=== PATIENT | female | born 1955 | race African-American/Black ===

== ENCOUNTER 2021-07-22 06:00 | Emergency (ER) | payer OTHER ==
[~2021-07-22] VITALS: Ht 162.6 cm; Wt 63.5 kg
--- NOTE | 2021-07-22 06:08 | NUR ---
PT BIBRA C/O HAVING SHORTNESS OF BREATH X FEW HOURS. PT HAS HX OF COPD AND ASTHMA SATTING AT 97% ON ROOM AIR. PATIENT USED INHALER AND HAD SOME RELIEF. ALERT AND OREINTED X3. AMBULATORY AND PLACED ON A MONITOR.
[2021-07-22] MEDS ORDERED: methylPREDNISolone SOD SUCC 125 MG/2ML VIAL ONE (06:15)
[2021-07-22] MEDS ORDERED: IPRATROPIUM NEB FS 0.5 MG/2.5 ML AMPUL.NEB ONE (06:23)
[2021-07-22] MEDS ORDERED: ALBUTEROL FS 2.5 MG/3 ML VIAL.NEB ONE (06:23)
[2021-07-22] MEDS ORDERED: methylPREDNISolone SOD SUCC 125 MG/2ML VIAL IV ONE (06:30)
[2021-07-22] MEDS ORDERED: IPRATROPIUM NEB FS 0.5 MG/2.5 ML AMPUL.NEB NEB ONE (06:30)
[2021-07-22] MEDS ORDERED: ALBUTEROL FS 2.5 MG/3 ML VIAL.NEB NEB ONE (06:30)
[2021-07-22] MEDS ORDERED: PRED5TAB48 PO (06:50)
--- NOTE | 2021-07-22 07:15 | NUR ---
Patient discharged to home in stable condition. Written and verbal after care instructions given. Patient verbalizes understanding of instruction.
[2021-07-22 08:00] VITALS: BP 131/75
--- NOTE | 2021-07-22 08:00 | NUR ---
IV removed. Catheter intact and site benign. Pressure and 4x4 applied to site. No bleeding noted.Patient discharged to home in stable condition. Written and verbal after care instructions given. Patient verbalizes understanding of instruction.
== END 2021-07-22 08:05 | disposition home or self-care (01) ==
LOC: ER 06:05
DX: J44.1 Chronic obstructive pulmonary disease with (acute) exacerbation (principal); I10 Essential (primary) hypertension; Z79.899 Other long term (current) drug therapy
CPT/HCPCS: 94640; 96374; 99285; J2930

== ENCOUNTER 2022-09-06 15:18 | Emergency (ER) | payer OTHER ==
[~2022-09-06] VITALS: Ht 170.2 cm; Wt 70.3 kg
[~2022-09-06 15:18] MED LIST: PRED5TAB48 PO
--- NOTE | 2022-09-06 15:20 | NUR ---
RECEIVED PT 66 YRS FEMALE WITH ELEVATED TEMP WITH MILD SOB
--- NOTE | 2022-09-06 15:30 | NUR ---
INSERTED ANGO CATHTER G 20 ON LT WIST BLOOD DROW AND SENT TO LAB
--- NOTE | 2022-09-06 15:45 | NUR ---
RT CALLED FOR BREATHING TREATMENT
[2022-09-06] MEDS ORDERED: methylPREDNISolone SOD SUCC 125 MG/2ML VIAL ONE (15:51)
[2022-09-06] MEDS ORDERED: ALBUTEROL FS 2.5 MG/3 ML VIAL.NEB ONE (15:56)
[2022-09-06] MEDS ORDERED: IPRATROPIUM NEB FS 0.5 MG/2.5 ML AMPUL.NEB ONE (15:56)
[2022-09-06] MEDS ORDERED: IPRATROPIUM NEB FS 0.5 MG/2.5 ML AMPUL.NEB NEB ONE (16:00)
[2022-09-06] MEDS ORDERED: ALBUTEROL FS 2.5 MG/3 ML VIAL.NEB NEB ONE (16:00)
[2022-09-06] MEDS ORDERED: methylPREDNISolone SOD SUCC 125 MG/2ML VIAL IV ONE (16:00)
--- NOTE | 2022-09-06 16:00 | NUR ---
CALEB ALONZO SENT TO LAB
[2022-09-06 16:14] LABS: BASOPHILS # (AUTO) 0.1 K/uL (0.0-0.2); BASOPHILS % (AUTO) 0.6 % (0.0-2.0); HEMATOCRIT 34 % (33-45); HEMOGLOBIN 11.1 g/dL (11.5-14.8); LYMPHOCYTES # (AUTO) 0.7 K/uL (0.8-4.8); MEAN CORPUSCULAR HGB CONC 32 g/dl (31.0-36.0); MEAN CORPUSCULAR VOLUME 87 fL (82-100); NEUTROPHILS # (AUTO) 14.7 K/uL (1.8-8.9); NEUTROPHILS % (AUTO) 87.4 % (43.0-81.0); PLATELET COUNT (AUTO) 244 K/uL (150-450); RED BLOOD CELL COUNT(AUTO) 3.96 MIL/uL (4.0-5.2); WHITE BLOOD COUNT (AUTO) 16.9 K/uL (4.3-11.0)
[2022-09-06] MEDS ORDERED: ACETAMINOPHEN ES 500 MG TABLET PO ONE (16:30)
[2022-09-06] MEDS ORDERED: ACETAMINOPHEN ES 500 MG TABLET ONE (16:41)
[2022-09-06 16:44] LABS: ALANINE AMINOTRANSFERASE 17 U/L (12-78); ALBUMIN 3.2 g/dL (3.4-5.0); ALKALINE PHOSPHATASE 62 U/L (46-116); ASPARTATE AMINOTRANSFERASE 19 U/L (15-37); BILIRUBIN,DIRECT 0.2 mg/dL (0.0-0.2); BILIRUBIN,TOTAL 0.4 mg/dL (0.2-1.0); CALCIUM, SERUM 8.5 mg/dL (8.5-10.1); CARBON DIOXIDE 25 mmol/L (21-32); CHLORIDE 101 mmol/L (98-107); CREATININE 1.2 mg/dL (0.6-1.3); GLUCOSE 116 mg/dL (74-106); POTASSIUM 3.9 mmol/L (3.5-5.1); SODIUM SERUM 135 mmol/L (136-145); UREA NITROGEN, BLOOD 13 mg/dL (7-18)
[2022-09-06] MEDS ORDERED: CEFTRIAXONE 1GM BAG (ER ONLY) 50 ML IV ONE (17:30)
[2022-09-06] MEDS ORDERED: AZITHROMYCIN 500 MG in IV D5W 250 ML IV ONE (17:30)
[2022-09-06] MEDS ORDERED: IV NS 0.9% 1,000 ML BAG IV ONE (18:00)
--- NOTE | 2022-09-06 18:04 | NUR ---
CALLED [facility] AND SPOKE WITH PAULA. OPENED A CASE AND LEXII VALDEZ WILL CALL BACK
--- NOTE | 2022-09-06 18:30 | NUR ---
C/O CHEST TIGHTENESS AND BACK PAIN DR. PRUETT NOTEFED AND AWARE
--- NOTE | 2022-09-06 19:27 | NUR ---
HAND OFF JULISSA RN
--- NOTE | 2022-09-06 21:54 | NUR ---
Pt accepted to [facility] by Dr Rivera. Room 4121. # for report [phone]. [facility] eta [id number].
--- NOTE | 2022-09-06 22:02 | NUR ---
NOTED TO CALL BACK FOR REPORT IN 15 MIN
--- NOTE | 2022-09-06 22:46 | NUR ---
REPORT GIVEN TO NURSE WALLACE
--- NOTE | 2022-09-06 23:49 | NUR ---
REPORT GIVEN TO TRANSPORT AT BEDSIDE
[2022-09-07 00:16] VITALS: BP 111/77
== END 2022-09-07 00:17 | disposition short-term general hospital (02) ==
LOC: ER 15:23
DX: J44.0 Chronic obstructive pulmonary disease with (acute) lower respiratory infection (principal); J18.9 Pneumonia, unspecified organism; J44.1 Chronic obstructive pulmonary disease with (acute) exacerbation; Z20.822 Contact with and (suspected) exposure to COVID-19; F17.200 Nicotine dependence, unspecified, uncomplicated; I10 Essential (primary) hypertension
CPT/HCPCS: 99285; 96365; 71045; 96375; 87426; 99406; 96368; 93005; 87804; 85025; 80048; 87040 ×2; 83605; 80076; 36415; 84484; 83880; 94640; J2930; J7030; J0456; J0696; C9803; J7060

== ENCOUNTER 2023-09-09 00:50 | Emergency (ER) | payer OTHER ==
[~2023-09-09] VITALS: Ht 162.6 cm; Wt 68.0 kg
[2023-09-09] MEDS ORDERED: methylPREDNISolone SOD SUCC 125 MG/2ML VIAL ONE (01:29)
[2023-09-09] MEDS ORDERED: methylPREDNISolone SOD SUCC 125 MG/2ML VIAL IV ONE (01:30)
[2023-09-09] MEDS ORDERED: ALBUTEROL FS 2.5 MG/3 ML VIAL.NEB NEB ONE (01:30)
[2023-09-09 01:42] VITALS: O2SAT 94
[2023-09-09] MEDS ORDERED: ALBUTEROL FS 2.5 MG/3 ML VIAL.NEB ONE ×2 (01:44→01:46)
[2023-09-09 01:59] VITALS: O2SAT 100
[2023-09-09] MEDS ORDERED: ALBUTEROL FS 2.5 MG/0.5 ML VIAL.NEB NEB ONE (02:00)
[2023-09-09 02:09] LABS: BASOPHILS % (AUTO) 0.4 % (0.0-2.0); EOSINOPHILS % (AUTO) 0.1 % (0.0-6.0); HEMATOCRIT 37 % (33-45); HEMOGLOBIN 11.9 g/dL (11.5-14.8); LYMPHOCYTES # (AUTO) 0.8 K/uL (0.8-4.8); LYMPHOCYTES % (AUTO) 8.2 % (20.0-44.0); MEAN CORPUSCULAR HEMOGLOBIN 27 PG (26.0-33.0); MEAN CORPUSCULAR HGB CONC 32 g/dl (31.0-36.0); MEAN CORPUSCULAR VOLUME 84 fL (82-100); MONOCYTES # (AUTO) 0.5 K/uL (0.1-1.30); MONOCYTES % (AUTO) 5.4 % (2.0-12.0); NEUTROPHILS # (AUTO) 8.3 K/uL (1.8-8.9); NEUTROPHILS % (AUTO) 85.9 % (43.0-81.0); PLATELET COUNT (AUTO) 365 K/uL (150-450); RED BLOOD CELL COUNT(AUTO) 4.37 MIL/uL (4.0-5.2); RED CELL DISTRIBUTION WIDTH 14.3 % (11.5-15.0); WHITE BLOOD COUNT (AUTO) 9.7 K/uL (4.3-11.0)
[2023-09-09 02:10] LABS: INR 1.05 (0.91-1.10); PARTIAL THROMBOPLASTIN TIME 28.5 SEC (24.3-34.3); PROTHROMBIN TIME 11.1 SECS (9.2-11.1)
[2023-09-09 02:27] LABS: CALCIUM, SERUM 9.4 mg/dL (8.5-10.1); CARBON DIOXIDE 25 mmol/L (21-32); CHLORIDE 104 mmol/L (98-107); CREATININE 0.9 mg/dL (0.6-1.3); GLUCOSE 131 mg/dL (74-106); POTASSIUM 4.2 mmol/L (3.5-5.1); SODIUM SERUM 139 mmol/L (136-145); UREA NITROGEN, BLOOD 13 mg/dL (7-18)
[2023-09-09 02:39] LABS: ALANINE AMINOTRANSFERASE 18 U/L (12-78); ALBUMIN 3.5 g/dL (3.4-5.0); ALKALINE PHOSPHATASE 92 U/L (46-116); ASPARTATE AMINOTRANSFERASE 14 U/L (15-37); BILIRUBIN,DIRECT 0.1 mg/dL (0.0-0.2); BILIRUBIN,TOTAL 0.2 mg/dL (0.2-1.0); NT-PRO BNP 47 pg/mL (0-125); TOTAL PROTEIN, SERUM 8.2 g/dL (6.4-8.2)
[2023-09-09] MEDS ORDERED: PRED50TA PO (03:17)
[2023-09-09] MEDS ORDERED: AZIT250T13 PO (03:17)
[2023-09-09 05:45] VITALS: BP 130/90; TEMP 98.1; O2SAT 95
== END 2023-09-09 03:45 | disposition home or self-care (01) ==
LOC: ER 00:54
DX: J44.1 Chronic obstructive pulmonary disease with (acute) exacerbation (principal); J18.9 Pneumonia, unspecified organism; J98.01 Acute bronchospasm; I10 Essential (primary) hypertension; F17.200 Nicotine dependence, unspecified, uncomplicated; Z79.899 Other long term (current) drug therapy
CPT/HCPCS: 94640; 99285; 96374; 71045; 93005; 85025; 80048; 80076; 36415; 84484; 85730; 83880; J2930

== ENCOUNTER 2023-11-28 21:22 | Inpatient (IN) | payer OTHER ==
[~2023-11-28] VITALS: Ht 162.6 cm; Wt 67.1 kg
[~2023-11-28 21:22] MED LIST changes: +AZIT250T13 PO; +PRED50TA PO
[2023-11-28] MEDS ORDERED: methylPREDNISolone SOD SUCC 40 MG/ML VIAL ONE (22:12)
[2023-11-28] MEDS: methylPREDNISolone SOD SUCC 125 MG/2ML VIAL IV ONE (22:16)
[2023-11-28] MEDS: ALBUTEROL FS 2.5 MG/3 ML VIAL.NEB NEB STA (22:24)
[2023-11-28] MEDS: IPRATROPIUM NEB FS 0.5 MG/2.5 ML AMPUL.NEB NEB STA (22:24)
[2023-11-28] MEDS ORDERED: ALBUTEROL FS 2.5 MG/3 ML VIAL.NEB ONE ×2 (22:26→22:32)
[2023-11-28] MEDS ORDERED: IPRATROPIUM NEB FS 0.5 MG/2.5 ML AMPUL.NEB ONE (22:26)
[2023-11-28] MEDS: ALBUTEROL FS 2.5 MG/3 ML VIAL.NEB CONTNEB ONE (22:31)
[2023-11-28 22:35] LABS: BASOPHILS # (AUTO) 0.3 K/uL (0.0-0.2); BASOPHILS % (AUTO) 2.8 % (0.0-2.0); EOSINOPHILS # (AUTO) 0.9 K/uL (0.0-0.7); EOSINOPHILS % (AUTO) 9.4 % (0.0-6.0); HEMATOCRIT 38 % (33-45); HEMOGLOBIN 12.4 g/dL (11.5-14.8); LYMPHOCYTES # (AUTO) 1.7 K/uL (0.8-4.8); LYMPHOCYTES % (AUTO) 17.3 % (20.0-44.0); MEAN CORPUSCULAR HEMOGLOBIN 28 PG (26.0-33.0); MEAN CORPUSCULAR HGB CONC 33 g/dl (31.0-36.0); MEAN CORPUSCULAR VOLUME 87 fL (82-100); MONOCYTES # (AUTO) 0.6 K/uL (0.1-1.30); MONOCYTES % (AUTO) 6.2 % (2.0-12.0); NEUTROPHILS # (AUTO) 6.4 K/uL (1.8-8.9); NEUTROPHILS % (AUTO) 64.3 % (43.0-81.0); PLATELET COUNT (AUTO) 293 K/uL (150-450); RED BLOOD CELL COUNT(AUTO) 4.39 MIL/uL (4.0-5.2); RED CELL DISTRIBUTION WIDTH 14.4 % (11.5-15.0)
[2023-11-28] MEDS: Magnesium 1GM/D5W 100ML PREMIX 200 ML IV ONE (22:45)
[2023-11-28] MEDS ORDERED: Magnesium 1GM/D5W 100ML PREMIX 100 ML IV ONE ×2 (22:50→23:30)
[2023-11-28 23:01] LABS: CALCIUM, SERUM 9.3 mg/dL (8.5-10.1); CARBON DIOXIDE 28 mmol/L (21-32); CHLORIDE 103 mmol/L (98-107); GLUCOSE 125 mg/dL (74-106); POTASSIUM 3.6 mmol/L (3.5-5.1); SODIUM SERUM 141 mmol/L (136-145); UREA NITROGEN, BLOOD 9 mg/dL (7-18)
[2023-11-28 23:14] LABS: NT-PRO BNP 36 pg/mL (0-125)
[2023-11-29] VITALS (10 sets, daily range): BP systolic 106–122; BP diastolic 70–84; TEMP 98.2–98.8; O2SAT 94–99
[2023-11-29] MEDS ORDERED: IPRATROPIUM NEB FS 0.5 MG/2.5 ML AMPUL.NEB NEB PRN (01:00)
[2023-11-29] MEDS ORDERED: MAGNESIUM HYDROXIDE 30 ML UDC PO PRN (01:00)
[2023-11-29] MEDS ORDERED: ZOLPIDEM TARTRATE 5 MG TABLET PO PRN (01:00)
[2023-11-29] MEDS ORDERED: MAG HYDROX/AL HYDROX/SIMETH 30 ML UDC PO PRN (01:00)
[2023-11-29] MEDS ORDERED: Z GUARD REMEDY 4 OZ OINT TP PRN (01:00)
[2023-11-29] MEDS ORDERED: ONDANSETRON HCL/PF 4 MG/2 ML VIAL IVP PRN (01:00)
[2023-11-29] MEDS ORDERED: ACETAMINOPHEN 325 MG TABLET PO PRN (01:00)
[2023-11-29] MEDS ORDERED: ALBUTEROL FS 2.5 MG/3 ML VIAL.NEB NEB PRN (01:00)
[2023-11-29] MEDS: ALBUTEROL FS 2.5 MG/0.5 ML VIAL.NEB NEB SCH (01:30)
[2023-11-29] MEDS: IPRATROPIUM NEB FS 0.5 MG/2.5 ML AMPUL.NEB NEB SCH (01:30)
[2023-11-29 02:23] LABS: ABG BASE EXCESS -1.4 mmol/L; ABG OXYGEN SATURATION 97.3 % (92.0-98.5); ABG PH 7.371 (7.350-7.450); ABG TOTAL HEMOGLOBIN 12.7 G/dL (12.0-16.0); COHb 0.3 % (0.5-1.5); MetHb 0.4 % (0.0-1.5); O2Hb 96.6 % (94.0-97.0); SITE, ABG Right Radial; VENT MODE, BG ST 10 15/5 40%
[2023-11-29] MEDS ORDERED: CEFEPIME 1 GM VIAL ONE (03:48)
[2023-11-29] MEDS: CEFEPIME 1 GM in IV D5W 50 ML IV ONE (04:03)
[2023-11-29] MEDS: methylPREDNISolone SOD SUCC 40 MG/ML VIAL IV SCH (05:16)
[2023-11-29 06:58] LABS: BASOPHILS % (AUTO) 0.4 % (0.0-2.0); EOSINOPHILS % (AUTO) 0.1 % (0.0-6.0); HEMATOCRIT 35 % (33-45); HEMOGLOBIN 11.4 g/dL (11.5-14.8); LYMPHOCYTES # (AUTO) 0.4 K/uL (0.8-4.8); MEAN CORPUSCULAR HEMOGLOBIN 28 PG (26.0-33.0); MEAN CORPUSCULAR HGB CONC 33 g/dl (31.0-36.0); MEAN CORPUSCULAR VOLUME 86 fL (82-100); MONOCYTES # (AUTO) 0.1 K/uL (0.1-1.30); MONOCYTES % (AUTO) 1.1 % (2.0-12.0); NEUTROPHILS # (AUTO) 8.5 K/uL (1.8-8.9); NEUTROPHILS % (AUTO) 94.4 % (43.0-81.0); PLATELET COUNT (AUTO) 304 K/uL (150-450); RED BLOOD CELL COUNT(AUTO) 4.07 MIL/uL (4.0-5.2)
[2023-11-29 07:19] LABS: CALCIUM, SERUM 9.2 mg/dL (8.5-10.1); CREATININE 1.1 mg/dL (0.6-1.3); MAGNESIUM 2.4 mg/dL (1.8-2.4); PHOSPHORUS 3.3 mg/dL (2.5-4.9); POTASSIUM 3.8 mmol/L (3.5-5.1)
[2023-11-29] MEDS: PANTOPRAZOLE 40 MG VIAL IV SCH (08:43)
[2023-11-29] MEDS: ENOXAPARIN SODIUM 40 MG/0.4 ML DISP.SYRIN SQ SCH (08:49)
[2023-11-29] MEDS ORDERED: ASPI-1169 PO (08:55)
[2023-11-29] MEDS ORDERED: ALBU2.5V38 IH (08:55)
[2023-11-29] MEDS ORDERED: TIOT18CA3 IH (08:55)
[2023-11-29] MEDS ORDERED: ROSU5TAB PO (08:55)
[2023-11-29] MEDS ORDERED: AMLO5TAB4 PO (08:55)
[2023-11-29] MEDS ORDERED: MONT10TA22 PO (08:55)
[2023-11-29] MEDS ORDERED: FLUT1DIS IH (08:55)
[2023-11-29] MEDS: GUAIFENESIN LA 600 MG TABLET.SA PO SCH (10:50)
[2023-11-29] MEDS: MONTELUKAST SODIUM (10MG) 10 MG TABLET PO SCH (10:50)
[2023-11-30] MEDS ORDERED: CEFEPIME 1 GM in IV D5W 50 ML IV SCH (09:00)
== END 2023-11-29 21:10 | disposition short-term general hospital (02) | DRG 152 ==
LOC: ER 21:23 → ICU 11-29 01:36 → MEDSG1 11-29 02:48 → TELE-TD 11-29 03:15 → TELE1 11-29 09:43
PROVIDERS: ADMIT Nurse Practitioner Acute Care
PROC: 5A09357 Assistance with Respiratory Ventilation, Less than 24 Consecutive Hours, Continuous Positive Airway Pressure (ICD-10-PCS; principal; 2023-11-28)
DX: J06.9 Acute upper respiratory infection, unspecified (principal); J96.01 Acute respiratory failure with hypoxia; J45.901 Unspecified asthma with (acute) exacerbation; J44.1 Chronic obstructive pulmonary disease with (acute) exacerbation; I10 Essential (primary) hypertension; Z20.822 Contact with and (suspected) exposure to COVID-19; Z79.899 Other long term (current) drug therapy; Z79.82 Long term (current) use of aspirin; Z79.51 Long term (current) use of inhaled steroids; F17.210 Nicotine dependence, cigarettes, uncomplicated
CPT/HCPCS: 36415; 36600; 71045-TC; 80048-TC; 83735-TC; 83880; 84100-TC; 84484-TC; 85025-TC; 94799-TC; A4223; C9113; G0378; J0692; J1650; J2920; J3475; J7040; J7050; J7060

== ENCOUNTER 2024-05-19 14:33 | Emergency (ER) | payer MEDICARE, OTHER ==
[~2024-05-19] VITALS: Ht 157.5 cm; Wt 72.6 kg
[~2024-05-19 14:33] MED LIST changes: +ALBU2.5V38 IH; +AMLO5TAB4 PO; +ASPI-1169 PO; -AZIT250T13 PO; +FLUT1DIS IH; +MONT10TA22 PO; -PRED50TA PO; -PRED5TAB48 PO; +ROSU5TAB PO; +TIOT18CA3 IH
--- NOTE | 2024-05-19 14:40 | NUR ---
NIKI ([facility]) [phone] FOR UPDATES
--- NOTE | 2024-05-19 14:45 | NUR ---
"Sob since Monday Asthma/COPD"
[2024-05-19] MEDS ORDERED: ALBUTEROL FS 2.5 MG/3 ML VIAL.NEB ONE (14:53)
[2024-05-19] MEDS ORDERED: IPRATROPIUM NEB FS 0.5 MG/2.5 ML AMPUL.NEB ONE (14:54)
--- NOTE | 2024-05-19 14:55 | NUR ---
Respitory at bedside
[2024-05-19 15:00] VITALS: O2SAT 95
[2024-05-19] MEDS: ALBUTEROL FS 2.5 MG/3 ML VIAL.NEB NEB ONE (15:00)
[2024-05-19] MEDS: IPRATROPIUM NEB FS 0.5 MG/2.5 ML AMPUL.NEB NEB ONE (15:00)
--- NOTE | 2024-05-19 15:00 | NUR ---
20g IV established in the LAC .
[2024-05-19] MEDS ORDERED: methylPREDNISolone SOD SUCC 125 MG/2ML VIAL ONE (15:13)
[2024-05-19] MEDS ORDERED: Magnesium 1GM/D5W 100ML PREMIX 200 ML IV ONE (15:13)
[2024-05-19] MEDS: IV NS 0.9% 1,000 ML BAG IV ONE (15:18)
[2024-05-19] MEDS: Magnesium 1GM/D5W 100ML PREMIX 200 ML IV ONE (15:20)
[2024-05-19] MEDS: methylPREDNISolone SOD SUCC 125 MG/2ML VIAL IV ONE (15:20)
[2024-05-19 16:01] VITALS: O2SAT 100
[2024-05-19] MEDS ORDERED: PRED50TA PO (17:08)
[2024-05-19 17:42] VITALS: BP 130/89; TEMP 99; O2SAT 100
== END 2024-05-19 17:42 | disposition home or self-care (01) ==
LOC: ER 14:33
DX: J44.1 Chronic obstructive pulmonary disease with (acute) exacerbation (principal); I10 Essential (primary) hypertension; F17.200 Nicotine dependence, unspecified, uncomplicated; Z92.850 Personal history of Chimeric Antigen Receptor T-cell therapy
CPT/HCPCS: 99285; 96374; 71045; 96375; 93005; 94644; J7030; J3475; A4223; J2919

== ENCOUNTER 2025-08-19 21:51 | Emergency (ER) | payer BC, MEDICARE, OTHER ==
[~2025-08-19] VITALS: Ht 160 cm; Wt 59.0 kg
[~2025-08-19 21:51] MED LIST changes: +PRED50TA PO
[2025-08-19 22:19] VITALS: TEMP 97.8
[2025-08-19] MEDS ORDERED: FAMOTIDINE/PF INJ 20 MG/2 ML VIAL IV ONE (22:25)
[2025-08-19 22:29] LABS: PLATELET COUNT (AUTO) 397 K/uL (150-450); RED BLOOD CELL COUNT(AUTO) 4.25 MIL/uL (4.0-5.2); RED CELL DISTRIBUTION WIDTH 15.4 % (11.5-15.0); WHITE BLOOD COUNT (AUTO) 13.9 K/uL (4.3-11.0)
[2025-08-19] MEDS: IV NS 0.9% 1,000 ML BAG IV ONE (22:30)
[2025-08-19] MEDS ORDERED: ONDANSETRON HCL/PF 4 MG/2 ML VIAL IVP ONE (22:30)
[2025-08-19] MEDS: FAMOTIDINE/PF INJ 20 MG/2 ML VIAL IV ONE (22:31)
[2025-08-19 22:44] LABS: ASPARTATE AMINOTRANSFERASE 15 U/L (15-37); CALCIUM, SERUM 9.5 mg/dL (8.5-10.1); CREATININE 0.7 mg/dL (0.6-1.3); SODIUM SERUM 142 mmol/L (136-145); TOTAL PROTEIN, SERUM 8.1 g/dL (6.4-8.2); UREA NITROGEN, BLOOD 16 mg/dL (7-18)
[2025-08-19] MEDS ORDERED: CYCLOBENZAPRINE 10 MG TABLET ONE (23:12)
[2025-08-19] MEDS ORDERED: KETOROLAC TROMETHAMINE INJ 30 MG/ML VIAL ONE (23:12)
[2025-08-19] MEDS: CYCLOBENZAPRINE 10 MG TABLET PO ONE (23:21)
[2025-08-19] MEDS: KETOROLAC TROMETHAMINE INJ 30 MG/ML VIAL IV ONE (23:21)
[2025-08-20 01:50] VITALS: BP 119/84; O2SAT 98
== END 2025-08-20 01:50 | disposition home or self-care (01) ==
LOC: ER 21:59
DX: R55 Syncope and collapse (principal); R11.2 Nausea with vomiting, unspecified; I11.9 Hypertensive heart disease without heart failure; F17.200 Nicotine dependence, unspecified, uncomplicated; J44.9 Chronic obstructive pulmonary disease, unspecified; Z79.51 Long term (current) use of inhaled steroids; Z79.52 Long term (current) use of systemic steroids; Z79.899 Other long term (current) drug therapy
CPT/HCPCS: 99285; 96374; 71045; 96361; 96375; 93005; 85025; 80048; 83690; 80076; 36415; 84484; J1885; J1308; J7030